=== PATIENT | male | born 1945 | race American Indian/Alaskan Native ===

== ENCOUNTER 2017-11-28 10:55 | Outpatient (CLI) | payer MEDICARE, OTHER ==
[2017-11-28 11:11] LABS: Hematocrit 38.9 % (35.5-45.6); Mean Corpuscular HGB Conc 33 % (32-34); Mean Corpuscular Hemoglobin 30 pg (28-32); Mean Corpuscular Volume 90 fl (84-94); Platelet Count 244 K/mm3 (140-440); Red Blood Count 4.31 M/mm3 (3.65-5.03); Red Cell Distribution Width 14.8 % (13.2-15.2)
[2017-11-28 11:33] LABS: Erythrocyte Sedimentation Rate 11 mm/Hr (0-20)
[2017-11-28 11:39] LABS: Alanine Aminotransferase 135 units/L (7-56); Albumin 4.1 g/dL (3.9-5); BUN/Creatinine Ratio 10; Blood Urea Nitrogen 7 mg/dL (9-20); Hemolysis Index 5
== END 2017-11-28 10:56 | disposition home or self-care (01) ==
LOC: LAB 10:55
PROVIDERS: ATTEND Specialist
DX: G60.9 Hereditary and idiopathic neuropathy, unspecified (principal)
CPT/HCPCS: 36415; 80053; 82607; 82747; 84165; 85027; 85652

== ENCOUNTER 2018-02-06 16:06 | Outpatient (CLI) | payer MEDICARE, OTHER ==
--- NOTE | 2018-02-06 17:26 | XRay Report ---
FINAL REPORT EXAM: XR PELVIS 1-2V HISTORY: Monoclonal gammopathy TECHNIQUE: AP pelvis PRIORS: None. FINDINGS: No acute fractures are identified. The pubic symphysis and SI joints are intact. No evidence of hip fracture or dislocation. No bony lesions are identified. IMPRESSION: Negative no acute abnormalities seen
--- NOTE | 2018-02-06 17:38 | XRay Report ---
FINAL REPORT EXAM: XR SKULL ROUTINE 4+V HISTORY: Monoclonal gammopathy TECHNIQUE: Skull series four views PRIORS: None. FINDINGS: Focal lytic bony lesions are identified. No fracture seen. Bony calvarium appears intact. IMPRESSION: Negative skull series
== END 2018-02-06 16:07 | disposition home or self-care (01) ==
LOC: XRAY 16:06
DX: D47.2 Monoclonal gammopathy (principal); M89.9 Disorder of bone, unspecified
CPT/HCPCS: 70260; 72170